=== PATIENT | female | born 1995 | race Caucasian/White ===

== ENCOUNTER 2019-03-11 13:34 | Emergency (ER) | payer MEDICAID, SELFPAY ==
[2019-03-11 13:35] VITALS: BP 158/79; PULSE 107; RESP 16; TEMP 37; O2SAT 98; BMI 34.0
--- NOTE | 2019-03-11 13:48 | US_ITS ---
STUDY: ULTRASOUND GALLBLADDER REASON FOR VISIT: Female, 24 years old. Abdominal pain and bloating TECHNIQUE: Ultrasound evaluation of the gallbladder was performed with real-time and static arthur-scale imaging. TECHNICAL QUALITY: Adequate. COMPARISON: None. FINDINGS: Gallbladder: Incompletely distended distended gallbladder. The gallbladder wall measures 14 mm. There is a positive sonographic Torrez's sign. There is pericholecystic fluid. There are no gallstones. Common Bile Duct (C.B.D.): The common bile duct measures 4 mm. US/Gallbladder IMPRESSION: 1. Gallbladder wall thickening with pericholecystic fluid (could be due to other causes other than biliary). No gallstones or gallbladder distention. Nonspecific finding and can be associated with cholecystitis, hypoalbuminemia, underlying liver disease. 2. Positive sonographic Torrez sign. Electronically Signed: Barry Sharma MD ([place]) at 15:13 EDT , Service support ,
[2019-03-11 14:14] LABS: Bacteria 0 SEEN /hpf (None Seen); Mucous, Urine 0 SEEN /hpf (<or=2+); Red Blood Cells-Urine 0 SEEN /hpf (0-5)
[2019-03-11 14:23] LABS: Color, Urine Amber (Yellow); Glucose, Dipstick Normal (Normal); Ketone-Dipstick 5 mg/dl (Negative); Leukocyte Esterase-Dipstick 25 /ul (Negative); Nitrite-Dipstick Positive (Negative); Occult Blood-Urine 10 /ul (Negative); Protein-Dipstick 30 mg/dl (Negative); Specific Gravity, Urine 1.015 (1.002-1.030); Urine Clarity Sl. Cloudy (Clear); Urine Urobilinogen 8 mg/dl (Normal); Urine pH 6.5 (5.0 - 8.0)
[2019-03-11] MEDS: 0.9% Normal Saline 1,000 ML 125 ML IV (14:24)
[2019-03-11] MEDS: Morphine 4 MG/ML Syringe IV (14:24)
[2019-03-11] MEDS: Ondansetron 4 MG/2 ML Vial IV (14:24)
[2019-03-11 14:30] LABS: Absolute Lymphocyte Count 3.26 X10^3/uL (0.83-4.51); Absolute Neutrophil Count 3.5 X10^3/uL (2.0-7.7); Basophil# 0.03 X10^3/uL; Basophil% 0.4 % (0-1); Eosinophil# 0.03 X10^3/uL; Eosinophils% 0.4 % (0-5); Hematocrit 39.3 % (37-47); Hemoglobin 13.6 g/dL (12.0-15.0); Lymphocyte # 3.26 X10^3/ul (4.0); Lymphocyte % 44.2 % (19-41); Mean Corp Hgb Conc 34.6 g/dL (32-36); Mean Corpuscular Hgb 30.7 pg (27.0-32.0); Mean Corpuscular Volume 88.7 fL (81-99); Mean Platelet Vol. 10.6 fl (6.2-12.0); Monocyte# 0.52 X10^3/uL; NRBC Flagged by Analyzer 0 % (0-5); Neutrophil # 3.51 X10^3/uL (2.7-7.7); Neutrophil % 47.6 % (47-70); POSITIVE MORPHOLOGY YES; Platelet Count 238 K/mm3 (150-450); RBC Distribution Width SD 45.6 fl (35.1-43.9); Red Blood Count 4.43 M/mm3 (4.2-5.4); White Blood Count 7.4 K/mm3 (4.4-11.0)
[2019-03-11 14:31] LABS: Urine Bilirubin Dipstick 6 mg/dL (Negative)
[2019-03-11 14:32] LABS: Squamous Epithelial Cells - UA 0-5 SEEN /hpf (5-10); White Blood Cells 0-5 SEEN /hpf (0-5)
[2019-03-11 14:34] LABS: Differential Indicated SCAN CRITERIA MET
[2019-03-11 14:42] LABS: Internal QC Validated? YES +Cl - CLEAR BKGD; Pregnancy, Serum, hCG Quali. NEGATIVE Negative
[2019-03-11 15:18] LABS: ALB/GLOB Ratio 0.6 RATIO (0.9-2.4); AST(SGOT) 1873 U/L (15-37); Alanine Aminotransfer ALT/SGPT 2450 U/L (13-56); Albumin, Serum 2.7 g/dL (3.2-5.0); Alkaline Phosphatase 188 U/L (45-117); Anion Gap 5 (5-15); BUN 7 mg/dL (7-18); Calcium,Total 7.7 mg/dL (8.5-10.1); Chloride 100 mmol/L (98-107); EST Glomerular Filtration Rate 108 mL/min (>60); Est Glom Filt Rate - Afr Amer 130 mL/min (>60); Globulin 4.4 g/dL (2.2-4.2); Glucose 99 mg/dL (74-106); Lipase 179 U/L (73-393); Potassium 4.1 mmol/L (3.5-5.1); Protein, Total 7.1 g/dL (6.4-8.2); Sodium Level 134 mmol/L (136-145)
[2019-03-11 15:34] VITALS: BP 122/79; PULSE 81; RESP 16; O2SAT 100
[2019-03-11 15:52] LABS: Differential Comment SCANNED
[2019-03-11 17:00] VITALS: BP 121/84; PULSE 79; RESP 16; O2SAT 99
--- NOTE | 2019-03-11 17:27 | ED.VISSUMM ---
- ER Visit Summary Date of Service: 03/11/19 Chief Complaint: [Abdominal pain] History of Present Illness: The patient is a 24 F [presents to the emergency room with abdominal pain for the last for 5 days. Patient states that she has pain in the upper abdomen that she rates about a 6 out of 10. She has had nausea and dry heaves. Patient has had some loose stool today. She describes a lot of bloating. She had decreased p.o. intake. Food seems to make the pain worse. She has history of hypothyroidism and prior choledocholithiasis but states that she never required any type of surgery or intervention and she passed a gallstone on her own. She states she has had fever at home up to 102 yesterday. Patient had chills.] Physical Examination: [HEENT-PERRLA, EOMI. Cranial nerves II through XII grossly intact. TMs clear. Mucous membranes moist. No adenopathy. Cardiovascular-regular rate and rhythm without murmur or ectopy Lungs-clear to auscultation, chest wall stable without crepitus or subcu emphysema Abdomen-normoactive bowel sounds, soft. Patient has tenderness to the epigastric region and right upper quadrant with some guarding. There is no rebound, rigidity, or perineal signs. Extremities-intact ?4, normal range of motion, normal pulses, atraumatic] Test Results: [CBC with differential 7.4, hemoglobin 13.6, hematocrit 39, placed 238. Chemistries unremarkable. LFTs showed an elevated bilirubin at 6.5, alk phos was 188, ALT 2450, AST 1873, and lipase 179. Urinalysis was normal. hCG was negative. Ultrasound of the right upper quadrant obtained showed gallbladder wall thickening with pericholecystic fluid which may be due to other causes other than biliary. Patient has no gallstones or gallbladder distention. Patient had positive sonographic Torrez sign. Findings can be associated with cholecystitis, hypoalbuminemia, and underlying liver disease.] Emergency Department Course and Treatment: [Case was discussed with general surgeon on-call Dr. Yovanny Samayoa who asked that we transfer patient to tertiary care center. We discussed case with [facility] and del Morgan at the transfer of patient.] Treatment Plan: [Transfer to [facility]] Disposition: [Transfer] Impression: [Abdominal pain Elevated liver enzymes Hyperbilirubinemia] This note was generated with [employer] dictation software. It may contain incorrect words, spelling, and punctuation that were not noted in review of the chart prior to signing ED Disposition - Plan for ED Patient: Referrals: Care Physician,No Primary [Primary Care Provider] -
[2019-03-11 18:57] VITALS: BP 116/81; PULSE 76; RESP 16; O2SAT 100
== END 2019-03-11 18:58 | disposition short-term general hospital (02) ==
LOC: ED 14:13
PROVIDERS: Emergency Provider Emergency Medicine
DX: R10.13 Epigastric pain (principal); R10.11 Right upper quadrant pain; R94.5 Abnormal results of liver function studies; E80.6 Other disorders of bilirubin metabolism; F11.90 Opioid use, unspecified, uncomplicated; Z87.19 Personal history of other diseases of the digestive system; Z72.0 Tobacco use
CPT/HCPCS: 76705; 80053; 81001; 83690; 84703; 85025; 86704; 86705; 86706; 86708; 86709; 86803; 87340; 96361; 96374; 96375; 99285; J7030; A4216; J2405

== ENCOUNTER 2020-03-12 12:17 | Observation (INO) | payer SELFPAY ==
[2020-03-12] VITALS (7 sets, daily range): BP systolic 130–168; BP diastolic 82–118; PULSE 78–120; RESP 16–20; TEMP 36.6–36.9; O2SAT 96–100; BMI 36.2; BMI 35.9
--- NOTE | 2020-03-12 12:30 | RAD_ITS ---
STUDY: X-RAY - ABDOMEN/PELVIS REASON FOR EXAM: Female, 25 years old. PT IS AN INMATE. SWALLOWED METH X 2 DAYS AGO, SENT BY [facility] NURSE TECHNIQUE: Single AP view of the abdomen / pelvis. COMPARISON: None. FINDINGS: Normal visualized lung bases. There is an unremarkable bowel gas pattern. There is no demonstrated free abdominal air. The visualized liver, spleen and kidneys are grossly normal in size and morphology. Normal soft tissue structures. Normal visualized osseous structures. RAD/Abdomen Single View IMPRESSION: Normal x-ray examination of the abdomen and pelvis. Electronically Signed: Santosh Arriaga, at 13:29 EDT , Service support ,
[2020-03-12 12:49] LABS: Absolute Lymphocyte Count 2.54 X10^3/uL (0.83-4.51); Basophil# 0.02 X10^3/uL; Basophil% 0.2 % (0-1); Eosinophil# 0.05 X10^3/uL; Eosinophils% 0.5 % (0-5); Hematocrit 42.6 % (37-47); Hemoglobin 14.4 g/dL (12.0-15.0); Lymphocyte # 2.54 X10^3/ul (4.0); Lymphocyte % 27.1 % (19-41); Mean Corp Hgb Conc 33.8 g/dL (32-36); Mean Corpuscular Hgb 30.5 pg (27.0-32.0); Mean Corpuscular Volume 90.3 fL (81-99); Mean Platelet Vol. 8.9 fl (6.2-12.0); Monocyte% 7.5 % (0-10); NRBC Flagged by Analyzer 0 % (0-5); Neutrophil # 6.04 X10^3/uL (2.7-7.7); Neutrophil % 64.5 % (47-70); Platelet Count 331 K/mm3 (150-450); RBC Distribution Width CV 11.9 % (11.6-14.6); RBC Distribution Width SD 39.7 fl (35.1-43.9); Red Blood Count 4.72 M/mm3 (4.2-5.4); White Blood Count 9.4 K/mm3 (4.4-11.0)
[2020-03-12 13:02] LABS: Anion Gap 5 (5-15); BUN 12 mg/dL (7-18); BUN/Creat Ratio 17.3 RATIO (10-20); Calcium,Total 9.1 mg/dL (8.5-10.1); Chloride 106 mmol/L (98-107); Creatinine, Serum 0.69 mg/dL (0.55-1.02); EST Glomerular Filtration Rate 108 mL/min (>60); Est Glom Filt Rate - Afr Amer 131 mL/min (>60); Estimated Creatinine Clearance 96.86 ml/min; Glucose 105 mg/dL (74-106); Potassium 3.8 mmol/L (3.5-5.1); Sodium Level 136 mmol/L (136-145)
[2020-03-12] MEDS: Ondansetron 4 MG/2 ML Vial IV (13:04)
[2020-03-12] MEDS: LORazepam 2 MG/ML Syringe 1 MG IV ×2 (13:04→14:46)
[2020-03-12 13:08] LABS: Internal QC Validated? YES +Cl - CLEAR BKGD; Pregnancy, Urine Negative Negative
[2020-03-12 13:20] LABS: Amphetamine Urine VISTA POSITIVE (<1000 ng/mL); Barbiturate Urine VISTA NEGATIVE (< 200 ng/mL); Benzodiazepine Urine VISTA NEGATIVE (< 200 ng/mL); Cocaine Urine VISTA NEGATIVE (< 300 ng/mL); Ecstacy Urine VISTA NEGATIVE (< 500 ng/mL); Methadone Urine VISTA NEGATIVE (< 300 ng/mL); PCP Urine VISTA NEGATIVE (< 25 ng/mL); THC Urine VISTA POSITIVE (< 50 ng/mL); Vista UDS pH Range 6
--- NOTE | 2020-03-12 13:54 | ED.VISSUMM ---
- ER Visit Summary Date of Service: 03/12/20 Chief Complaint: [Ingestion] History of Present Illness: The patient is a 25 F [presents to the emergency department after swallowing a bunch of meth 3 days ago. Patient presents from skilled nursing with police escort. Patient is complaining of feeling very paranoid and shaky. She is been having crampy abdominal pain. Patient apparently has been collecting the stool in it is unclear if she ever passed the bag of meth. Patient has had some nausea and some diarrhea related to being dope sick. Patient does admit to using meth as well as heroin. Patient is a smoker. Patient drinks alcohol occasionally.] Physical Examination: [HEENT-PERRLA, EOMI. Cranial nerves II through XII grossly intact. TMs clear. Mucous membranes moist. No adenopathy. Cardiovascular-regular rate and rhythm without murmur or ectopy Lungs-clear to auscultation, chest wall stable without crepitus or subcu emphysema Abdomen-normoactive bowel sounds, soft. Patient has some mild tenderness diffusely. There is no rebound, rigidity, or peritoneal signs. Extremities-intact ?4, normal range of motion, normal pulses, atraumatic] Test Results: [CBC with differential obtained showed a white count of 9.4, hemoglobin 14, hematocrit 43, placed 331. Chemistries unremarkable. hCG was negative. Toxicology screen was positive for amphetamines and marijuana. A KUB was performed which essentially showed nothing acute.] Emergency Department Course and Treatment: [IV line established on arrival. Patient was given Ativan 1 mg IV. Patient continued feels shaky and anxious and was given a second dose of Ativan 1 mg IV.] Treatment Plan: [Admit] Disposition: [Admit] Impression: [Ingestion of methamphetamines Tachycardia Illicit drug use ] This note was generated with [employer] dictation software. It may contain incorrect words, spelling, and punctuation that were not noted in review of the chart prior to signing ED Disposition - Plan for ED Patient: Referrals: Care Physician,No Primary [Primary Care Provider] -
--- NOTE | 2020-03-12 14:11 | NURSING ---
DR CATALINO CALDERON
--- NOTE | 2020-03-12 14:17 | HP.PCM_ITS ---
Problem List (1) Amphetamine abuse Status: Acute (2) Elevated blood pressure reading Status: Acute (3) Tachycardia Status: Acute (4) Obesity (BMI 35.0-39.9 without comorbidity) Status: Acute History of Present Illness Date of Admission: 03/12/20 The patient is a 25 year old F with a past medical history of polysubstance abuse. She presented to the ED with a police escort after having paranoia, tremor, anxiety and crampy abdominal pain today. She apparently swallowed a bunch of meth in packaging about 3 days ago when being pulled over by the [employer]. It is unclear if she has passed the swallowed bags at this time and with her sx there is concern that the bags are leaking. Her tox screen is + for amphetamines and THC on admission. Her test is negative. All other lab is WNL. She is tachycardic (sinus tach) with HR in the 100-120 range at rest and she is hypertensive with a BP in the ED of 160/118. She has no changes in her EKG. Past Medical History Allergies No Known Allergies Allergy (Verified 03/12/20 12:41) Home Medications: Ambulatory Orders Medication Instructions Recorded NK 03/11/19 Surgical History: cholecystectomy Psychiatric History: Anxiety SCISSORS SHARPENER History: No pertinent SCISSORS SHARPENER history Lives: - - here from skilled nursing Smoking Status: Current every day smoker Tobacco Use: Cigarettes - 1/2 PPD Alcohol: Occasional Drugs: Heroin, Marijuana, - - meth Review of Systems Constitutional: Reports: Chills, Fatigue. Denies: Anorexia, Fever, Night Sweats, Malaise, Weakness, Weight Change Eyes: Denies: Blurred vision, Cataracts, Conjunctivae Inflammation, Double vision, Drainage, Eyelid Inflammation, Pain, Redness, Vision Change HEENT: Denies: Difficulty Hearing, Difficulty Swallowing, Dysphasia, Ear Pain, Eye Pain, Hard of Hearing, Head Aches, Hearing Changes, Nasal bleeding, Nasal Congestion, Post Nasal Drip, Sinus Congestion, Sinus Drainage, Sore Throat, Visual Changes Cardiovascular: Denies: Chest Pain, Claudication, Chest Pressure, Chest Tightness, Edema, Heaviness, Light Headedness, Orthopnea, Palpitations, Paroxysmal Noc. Dyspnea, Syncope Respiratory: Denies: Cough, Hemoptysis, Pleuritic Pain, Shortness of Breath, Shortness of breath at rest, Shortness of breath upon exertion, Sputum production, Wheezing Gastrointestinal: Reports: Diarrhea, Nausea. Denies: Abdominal Pain, Constipation, Dyspepsia, Hematemesis, Hematochezia, Melena, Vomiting Genitourinary: Denies: Dysuria, Frequency, Hematuria, Hesitancy, Incontinence, Nocturia, Retention, Urgency Gynecological: Denies: Breast symptoms, Excessively long or heavy periods, Vaginal bleeding Musculoskeletal: Reports: Muscle pain. Denies: Back Pain, Joint stiffness, Joint swelling, Joint Tenderness, Neck Pain Skin: Denies: Dryness, Jaundice, Lesions, Pruritis, Rash, Skin Changes Neurological: Reports: Tremor. Denies: Balance problems, Blurred vision, Double vision, Change in Speech, Slurred speech, Confusion, Difficulty swallowing, Focal weakness, Headaches, Incoordination, Numbness, Tingling, Seizures Psychiatric: Reports: Anxiety, - - paranoia. Denies: Depression Endocrine: Denies: Change in Body Habitus, Heat/ Cold Intolerance, Polydipsia, Polyuria Hematologic/ Lymphatic: Denies: Adenopathy, Anemia, Easy Bruising, Easy Bleeding, Petechiae, Purpura VTE Information - Inpt Only VTE Present on Admission: No VTE Mechan Device Prophylaxis: None - low risk VTE Pharm Prophylaxis ordered?: No Patient Problems: Active and Suspected Problems Amphetamine abuse (Acute) Elevated blood pressure reading (Acute) Tachycardia (Acute) Obesity (BMI 35.0-39.9 without comorbidity) (Acute) - Physical Exam Vitals/I&O's: Vital Signs Temp Pulse Resp BP 98.3 F 115 H 18 160/118 H 03/12/20 12:18 03/12/20 12:18 03/12/20 12:18 03/12/20 12:18 Oxygen Delivery Method Room Air Weight: 89.9 kg Body Mass Index (BMI) 36.2 General: Alert, Oriented x3, Cooperative, No apparent distress, Well developed, Well nourished, - - young WF who appears older than stated age HEENT: Atraumatic, PERRLA, EOMI, Normocephalic, EAC Clear Oral: Moist Mucosa, No Gingival or Mucosal Lesions/ Ulcerations, - - fair dent ition Neck: Supple, No JVD, Negative Carotid Bruits, No Nodes, Trachea Midline Lungs: Clear to auscultation, Normal air movement, No rhonchi, No wheeze, No rales Cardiovascular: Regular Rhythm, Normal S1, Normal S2, No murmurs, No Ectopic Activity, No rub noted, No Gallop, Tachycardic Abdomen: Bowel Sounds Present, Soft, Non Tender, Non-Distended, Obese, No hernias noted Extremities: No clubbing, No cyanosis, No edema, Capillary Refill Less than 3 Seconds, Peripheral Pulses Normal Skin: No rashes, No breakdown, - - multiple track sibley Musculoskeletal: No Tenderness to Palpation of Joints or Extremities, No Muscle Wasting Lymphatic: No Cervical, Supraclavicular, or Inguinal Adenopathy Neurological: Cranial nerves II-XII grossly intact, Neuro grossly intact, Muscle tone normal, Coordination normal Psych/Mental Status: Anxious, Impulsive, Manic, - - pressured speech but A&O x 4 Laboratory Results 03/12/20 12:40: WBC 9.4, RBC 4.72, Hgb 14.4, Hct 42.6, MCV 90.3, MCH 30.5, MCHC 33.8, RDW Std Deviation 39.7, RDW Coeff of Arielle 11.9, Plt Count 331, MPV 8.9, Immature Gran % (Auto) 0.200, Neut % (Auto) 64.5, Lymph % (Auto) 27.1, [place] % (Auto) 7.5, Eos % (Auto) 0.5, Baso % (Auto) 0.2, Absolute Neuts (auto) 6.0, Absolute Lymphs (auto) 2.54, Nucleated RBC % 0 03/12/20 12:40: Sodium 136, Potassium 3.8, Chloride 106, Carbon Dioxide 25.0, Anion Gap 5, BUN 12, Creatinine 0.69, Estim Creat Clear Calc 96.86, Est GFR (MDRD) Af Amer 131, Est GFR (MDRD) Non-Af 108, BUN/Creatinine Ratio 17.3, Gluc ose 105, Calcium 9.1 03/12/20 13:00: Urine Test Negative 03/12/20 13:00: Urine Opiates Screen NEGATIVE, Urine Methadone Screen NEGATIVE, Ur Barbiturates Screen NEGATIVE, Ur Phencyclidine Scrn NEGATIVE, Ur Amphetamines Screen POSITIVE H, U Methamphetamin-MDMA NEGATIVE, U Benzodiazepines Scrn NEGATIVE, Urine Cocaine Screen NEGATIVE, U Cannabinoids Screen POSITIVE H, Ur Drug Screen Comment Assessment/Plan All Active Problems Amphetamine abuse (Acute) Elevated blood pressure reading (Acute) Tachycardia (Acute) Obesity (BMI 35.0-39.9 without comorbidity) (Acute) Acute Meth Toxicity/OD -admit to tele -check EKG -am lab -addiction order set Tachycardia/HTN -suspect related to withdrawal/toxicity -labetalol prn -addiction order set -EKG in am -tsh Polysubstance Abuse -Meth/THC/Heroin -IVDU regularly -check HIV status and Hep C status -recommend f/u with 180 once released from skilled nursing Hypothyroidism -in history but not on any meds -check TSH Cholecystitis -s/p cholecystectomy -done at [facility] -03/2019 Tobacco Abuse -recommend cessation -start patch Obesity -recommend wgt loss -BMI 36 DVT prophylaxis -low risk -early mobility Code status -Full Inpatient E&M: 70655 Subs Hosp L3
--- NOTE | 2020-03-12 14:24 | NURSING ---
PCU METHAMPHETAMINE INGESITON CATALINO
[2020-03-12] MEDS: Lactated Ringers 1,000 ML 100 ML IV (16:39)
[2020-03-12] MEDS: Polyethylene Glycol 3350 17 GM PACKET PO (16:39)
[2020-03-12] MEDS: hydrOXYzine PAM 25 MG Capsule 50 MG PO (18:02)
[2020-03-12] MEDS: cloNIDine HCl 0.1 MG Tablet PO (18:02)
[2020-03-12] MEDS: Phenobarbital 32.4 MG Tablet 97.2 MG PO (20:42)
[2020-03-12] MEDS: Folic Acid 1 MG Tablet PO (20:43)
[2020-03-12] MEDS: Acetaminophen 325 MG Tablet 650 MG PO (20:43)
[2020-03-12] MEDS: Multivitamins,Therapeutic Tablet 1 TABLET PO (20:43)
[2020-03-12] MEDS: Gabapentin 300 MG Capsule PO (20:43)
[2020-03-12] MEDS: Thiamine Hydrochloride 100 MG Tablet PO (20:48)
[2020-03-12 21:01] LABS: Magnesium 2.3 mg/dL (1.6-2.6); Phosphorus 2.9 mg/dL (2.5-4.9)
[2020-03-13] MEDS: traZODone 100 MG Tablet PO (00:23)
[2020-03-13] MEDS: Phenobarbital 32.4 MG Tablet 97.2 MG PO ×4 (00:23→13:14)
[2020-03-13 00:46] VITALS: PULSE 94; RESP 16; TEMP 36.8; O2SAT 100
[2020-03-13] MEDS: Acetaminophen 325 MG Tablet 650 MG PO ×2 (04:26→13:14)
[2020-03-13 04:33] VITALS: BP 119/89; PULSE 88; RESP 16; TEMP 36.4; O2SAT 100
--- NOTE | 2020-03-13 05:55 | EKG12_ITS ---
Test Reason : AM EKG Blood Pressure : / mmHG Vent. Rate : 087 BPM Atrial Rate : 087 BPM P-R Int : 146 ms QRS Dur : 094 ms QT Int : 392 ms P-R-T Axes : 030 062 052 degrees QTc Int : 471 ms Normal sinus rhythm Normal ECG No previous ECGs available Confirmed by DARLINE KING ([id number]), photographic editor BEN MOORE ([id number]) on 03/15/2020 10:38:07 AM Referred By: CATALINO Confirmed By:DARLINE KING
[2020-03-13 06:25] LABS: Absolute Lymphocyte Count 3.24 X10^3/uL (0.83-4.51); Absolute Neutrophil Count 3.9 X10^3/uL (2.0-7.7); Basophil# 0.03 X10^3/uL; Basophil% 0.4 % (0-1); Eosinophil# 0.05 X10^3/uL; Eosinophils% 0.6 % (0-5); Hematocrit 43.2 % (37-47); Hemoglobin 14.4 g/dL (12.0-15.0); Lymphocyte # 3.24 X10^3/ul (4.0); Lymphocyte % 41.2 % (19-41); Mean Corp Hgb Conc 33.3 g/dL (32-36); Mean Corpuscular Hgb 30.8 pg (27.0-32.0); Mean Corpuscular Volume 92.5 fL (81-99); Mean Platelet Vol. 8.8 fl (6.2-12.0); Monocyte# 0.66 X10^3/uL; Monocyte% 8.4 % (0-10); NRBC Flagged by Analyzer 0 % (0-5); Neutrophil # 3.86 X10^3/uL (2.7-7.7); Platelet Count 303 K/mm3 (150-450); RBC Distribution Width CV 12.2 % (11.6-14.6); RBC Distribution Width SD 41.1 fl (35.1-43.9); Red Blood Count 4.67 M/mm3 (4.2-5.4); White Blood Count 7.9 K/mm3 (4.4-11.0)
[2020-03-13 07:05] LABS: ALB/GLOB Ratio 0.8 RATIO (0.9-2.4); AST(SGOT) 26 U/L (15-37); Alanine Aminotransfer ALT/SGPT 54 U/L (13-56); Albumin, Serum 3.8 g/dL (3.2-5.0); Alkaline Phosphatase 71 U/L (45-117); Anion Gap 1 (5-15); BUN 14 mg/dL (7-18); BUN/Creat Ratio 17.2 RATIO (10-20); Calcium,Total 8.4 mg/dL (8.5-10.1); Chloride 108 mmol/L (98-107); Creatinine, Serum 0.81 mg/dL (0.55-1.02); EST Glomerular Filtration Rate 90 mL/min (>60); Est Glom Filt Rate - Afr Amer 108 mL/min (>60); Estimated Creatinine Clearance 82.51 ml/min; Globulin 4.8 g/dL (2.2-4.2); Glucose 108 mg/dL (74-106); Magnesium 2.3 mg/dL (1.6-2.6); Phosphorus 3.7 mg/dL (2.5-4.9); Potassium 3.9 mmol/L (3.5-5.1); Protein, Total 8.6 g/dL (6.4-8.2); Sodium Level 137 mmol/L (136-145)
[2020-03-13] MEDS: Thiamine Hydrochloride 100 MG Tablet PO (08:48)
[2020-03-13] MEDS: Folic Acid 1 MG Tablet PO (08:48)
[2020-03-13] MEDS: Multivitamins,Therapeutic Tablet 1 TABLET PO (08:48)
[2020-03-13] MEDS: Ondansetron 8 MG Tablet PO (08:48)
[2020-03-13 09:00] VITALS: BP 139/89; PULSE 101; RESP 16; TEMP 37; O2SAT 100
[2020-03-13 10:54] LABS: HIV - WCH Nonreactive (Nonreactive)
[2020-03-13 10:56] LABS: Hepatitis C Antibody Preliminary Reactive (Nonreactive)
[2020-03-13] MEDS: cloNIDine HCl 0.1 MG Tablet PO (13:14)
[2020-03-13] MEDS: hydrOXYzine PAM 25 MG Capsule 50 MG PO (13:14)
[2020-03-13 14:27] VITALS: BP 122/81; PULSE 88; RESP 16; TEMP 37.3; O2SAT 98
--- NOTE | 2020-03-13 16:08 | DCINST_ITS ---
- Discharge Diagnoses Current Active Problems: Current Active and Chronic Problems Amphetamine abuse (Acute) Elevated blood pressure reading (Acute) Tachycardia (Acute) Obesity (BMI 35.0-39.9 without comorbidity) (Acute) You will use the following diet at home:: No restrictions Your food should be the consistency of: Regular Your liquids should be the consistency of: Regular/Thin Discharge Activity: Return to Normal Activity, No Restrictions Pending Tests on Discharge: pt needs a f/u TSH in 6 weeks Allergies/Adverse Reactions: Allergies Penicillins Adverse Reaction (Verified 03/12/20 17:58) Anaphylaxis Medications to take at Discharge ALPRAZolam [Xanax] 4 mg PO DAILY 03/12/20 Clonidine HCl [Catapres] 0.1 mg PO Q8H PRN PRN #9 tablet 03/13/20 Levothyroxine Sodium [Synthroid] 50 mcg PO DAILY #30 tablet 03/13/20 hydrOXYzine pamoate capsule [Vistaril pamoate capsule] 50 mg PO Q6H PRN PRN #12 capsule 03/13/20 The following prescriptions were given: Clonidine HCl [Catapres] 0.1 mg PO Q8H PRN PRN #9 tablet PRN Reason: Restlessness Levothyroxine Sodium [Synthroid] 50 mcg PO DAILY #30 tablet hydrOXYzine pamoate capsule [Vistaril pamoate capsule] 50 mg PO Q6H PRN PRN #12 capsule PRN Reason: mild anxiety Primary Care Physician: Care Physician,No Primary [Primary Care Provider] - Test Results: Test results from this visit will be discussed in further detail at your follow- up appointment, if applicable.
--- NOTE | 2020-03-13 16:12 | DS.PCM_ITS ---
Discharge Date and Diagnosis - Problem List Patient Problems: Active and Suspected Problems Amphetamine abuse (Acute) Elevated blood pressure reading (Acute) Tachycardia (Acute) Obesity (BMI 35.0-39.9 without comorbidity) (Acute) Date of Admission: 03/12/20 Date of Discharge: 03/13/20 - Primary Discharge Diagnosis Acute Problems: Active Problems Amphetamine abuse (Acute) Elevated blood pressure reading (Acute) Tachycardia (Acute) Obesity (BMI 35.0-39.9 without comorbidity) (Acute) Hospital Course and Treatment Operations: None Procedures: None Summary of Care Provided: Ms Howell is a 25 year old F with a past medical history of polysubstance abuse. She presented to the ED on 03/12 with a police escort after having paranoia, tremor, anxiety and crampy abdominal pain. She apparently swallowed a bunch of meth in packaging about 3 days prior to admission when being pulled over by the police. It is unclear if she has passed the swallowed bags at this time and with her sx there is concern that the bags are leaking. Her tox screen is + for amphetamines and THC on admission. Her test is negative. All other lab is WNL. She is tachycardic (sinus tach) with HR in the 100-120 range at rest and she is hypertensive with a BP in the ED of 160/118. She has no changes in her EKG. SHe was treated with supportive care and her BP and HR normalized. She was found to have Hep C antibody and encouraged to f/u with a PCP after she was released from halfway and have a viral load done to assess for viral clearance. She was also found to have a TSH of 20. She is to be on synthroid at baseline but has not been compliant. She had been on 50 mcg and this was restarted and a script was written. She will need a repeat TSH in 6 weeks. She was also written scripts for Hydroxyzine and clonidine prn to help with any further withdrawal sx over the next 3 days. She was release with an officer back to halfway. Patient Problems: Active and Suspected Problems Amphetamine abuse (Acute) Elevated blood pressure reading (Acute) Tachycardia (Acute) Obesity (BMI 35.0-39.9 without comorbidity) (Acute) - Physical Exam Vitals/I&O's: Vital Signs Temp Pulse Resp BP Pulse Ox 99.1 F 88 16 122/81 H 98 03/13/20 14:27 03/13/20 14:27 03/13/20 14:27 03/13/20 14:27 03/13/20 14:27 Oxygen Delivery Method Room Air Weight: 89.04 kg Body Mass Index (BMI) 36.2 Intake and Output for Last 24 Hours 03/11/20 03/12/20 03/13/20 23:59 23:59 23:59 Intake Total 803.33 / 803.33 3250 / 3250 Output Total 900 / 900 Balance 803.33 / 803.33 2350 / 2350 General: Alert, Oriented x3, Cooperative, No apparent distress, Well developed, Well nourished, - - young WF appears older than stated age, sitting up eating and officer at bedside Lungs: Clear to auscultation, Normal air movement, No rhonchi, No wheeze, No rales Cardiovascular: Regular rate, Regular Rhythm, Normal S1, Normal S2, No murmurs, No Ectopic Activity, No rub noted, No Gallop Abdomen: Bowel Sounds Present, Soft, Non Tender, Non-Distended, No Hepato- splenomegaly, Obese Extremities: No clubbing, No cyanosis, No edema, Capillary Refill Less than 3 Seconds Skin: No rashes, No breakdown Neurological: Cranial nerves II-XII grossly intact, Neuro grossly intact Psych/Mental Status: Normal Affect, Appropriate, Alert and oriented to time, place, person, mood and affect Laboratory Results 03/12/20 12:40: Phosphorus 2.9, Magnesium 2.3 03/13/20 06:12: WBC 7.9, RBC 4.67, Hgb 14.4, Hct 43.2, MCV 92.5, MCH 30.8, MCHC 33.3, RDW Std Deviation 41.1, RDW Coeff of Arielle 12.2, Plt Count 303, MPV 8.8, Immature Gran % (Auto) 0.400, Neut % (Auto) 49.0, Lymph % (Auto) 41.2 H, [place] % (Auto) 8.4, Eos % (Auto) 0.6, Baso % (Auto) 0.4, Absolute Neuts (auto) 3.9, Absolute Lymphs (auto) 3.24, Nucleated RBC % 0 03/13/20 06:12: Sodium 137, Potassium 3.9, Chloride 108 H, Carbon Dioxide 28.0, Anion Gap 1 L, BUN 14, Creatinine 0.81, Estim Creat Clear Calc 82.51, Est GFR (MDRD) Af Amer 108, Est GFR (MDRD) Non-Af 90, BUN/Creatinine Ratio 17.2, Glucose 108 H, Calcium 8.4 L, Phosphorus 3.7, Magnesium 2.3, Total Bilirubin 0.40, AST 26, ALT 54, Alkaline Phosphatase 71, Total Protein 8.6 H, Albumin 3.8, Globulin 4.8 H, Albumin/Globulin Ratio 0.8 L, TSH 20.70 H 03/13/20 06:12: Hepatitis C Antibody Preliminary Reactive, HIV 1&2 Antibody Nonreactive Current Medications Acetaminophen (Tylenol) 650 mg PO Q6H PRN PRN PRN Reason: Pain Score 1-10/Temp > 100.7 F Last Admin: 03/13/20 13:14 Dose: 650 mg Documented by: Clonidine (Catapres) 0.1 mg PO Q8H PRN PRN PRN Reason: RESTLESSNESS Last Admin: 03/13/20 13:14 Dose: 0.1 mg Documented by: Dicyclomine HCl (Bentyl) 20 mg PO Q6H PRN PRN PRN Reason: Abdominal Discomfort Folic Acid (Folic Acid) 1 mg PO DAILY@0800 YAEL Last Admin: 03/13/20 08:48 Dose: 1 mg Documented by: Gabapentin (Neurontin) 300 mg PO Q8H PRN PRN PRN Reason: moderate to severe anxiety Last Admin: 03/12/20 20:43 Dose: 300 mg Documented by: Hydroxyzine Pamoate (Vistaril Pamoate Capsule) 50 mg PO Q6H PRN PRN PRN Reason: mild anxiety Last Admin: 03/13/20 13:14 Dose: 50 mg Documented by: Labetalol HCl (Trandate) 20 mg IV Q4H PRN PRN PRN Reason: Sbp Greater Than 160 Loperamide HCl (Imodium) 2 mg PO Q4H PRN PRN PRN Reason: LOOSE STOOLS Melatonin (Melatonin) 3 mg PO QHS PRN PRN PRN Reason: INSOMNIA Methocarbamol (Methocarbamol) 1,500 mg PO Q6H PRN PRN PRN Reason: MUSCLE SPASM Multivitamins (Multivitamin) [facility] Last Admin: 03/13/20 08:48 Dose: 1 tablet Documented by: Nicotine (Nicoderm Cq (Pbkc)) 14 mg TRANSDERM. DAILY [facility] Last Admin: 03/13/20 08:49 Dose: 14 mg Documented by: Ondansetron HCl (Zofran) 4 mg IV Q8H PRN PRN PRN Reason: NAUSEA/VOMITING Ondansetron HCl (Zofran) 8 mg PO Q8H PRN PRN PRN Reason: NAUSEA Last Admin: 03/13/20 08:48 Dose: 8 mg Documented by: Phenobarbital (Phenobarbital) 97.2 mg PO Q4H [facility]; Taper Stop: 03/17/20 04:59 Last Admin: 03/13/20 13:14 Dose: 97.2 mg Documented by: Sodium Chloride () 10 - 40 ml IV UD PRN PRN Reason: SALINE FLUSH Thiamine HCl (Vitamin B1) [facility] Last Admin: 03/13/20 08:48 Dose: 100 mg Documented by: Trazodone HCl (Desyrel) 100 mg PO QHS PRN PRN PRN Reason: INSOMNIA Last Admin: 03/13/20 00:23 Dose: 100 mg Documented by: Discharge Activity: Return to Normal Activity, No Restrictions Home Medications: Medications to take at Discharge ALPRAZolam [Xanax] 4 mg PO DAILY 03/12/20 Clonidine HCl [Catapres] 0.1 mg PO Q8H PRN PRN #9 tablet 03/13/20 Levothyroxine Sodium [Synthroid] 50 mcg PO DAILY #30 tablet 03/13/20 hydrOXYzine pamoate capsule [Vistaril pamoate capsule] 50 mg PO Q6H PRN PRN #12 capsule 03/13/20 Following Prescriptions Were Given to Patient: Clonidine HCl [Catapres] 0.1 mg PO Q8H PRN PRN #9 tablet PRN Reason: Restlessness Levothyroxine Sodium [Synthroid] 50 mcg PO DAILY #30 tablet hydrOXYzine pamoate capsule [Vistaril pamoate capsule] 50 mg PO Q6H PRN PRN #12 capsule PRN Reason: mild anxiety Primary Care Physician: Care Physician,No Primary [Primary Care Provider] - Medical Necessity - Tobacco Use Smoking Status: Current every day smoker Tobacco Use: Cigarettes Meaningful Use Info Meaningful Use Diagnoses (Choose all that apply): None applicable Inpatient E&M: 33089 Disch Hosp
== END 2020-03-13 16:11 ==
LOC: ED 13:06 → PCU 14:31
PROVIDERS: Family Medicine; Admitting Provider Internal Medicine; Emergency Provider Emergency Medicine; Visit Provider Internal Medicine
DX: F15.10 Other stimulant abuse, uncomplicated (principal); E66.9 Obesity, unspecified; R19.7 Diarrhea, unspecified; R00.0 Tachycardia, unspecified; F41.9 Anxiety disorder, unspecified; Z79.899 Other long term (current) drug therapy; F17.210 Nicotine dependence, cigarettes, uncomplicated; F11.10 Opioid abuse, uncomplicated; F12.10 Cannabis abuse, uncomplicated; I10 Essential (primary) hypertension; Z68.36 Body mass index [BMI] 36.0-36.9, adult; E03.9 Hypothyroidism, unspecified; Z91.14 Patient's other noncompliance with medication regimen
CPT/HCPCS: 74018; 80048; 80053; 80307; 81025; 83735; 84100; 84443; 85025; 86703; 86803; 93005; 96361; 96374; 96375; 96376; 97802; 99218; 99284; J7120; A4216; G0378; J2405

== ENCOUNTER → 2023-03-04 | Outpatient (CLI) | payer MEDICAID, SELFPAY ==
[2023-03-04 15:18] LABS: Hemoglobin A1c 4.8 % (3.8-5.6)
[2023-03-04 15:59] LABS: AST(SGOT) 19 U/L (15-37); Alanine Aminotransfer ALT/SGPT 28 U/L (13-56); Alkaline Phosphatase 55 U/L (45-117); Anion Gap 7 (5-15); BUN 17 mg/dL (7-18); BUN/Creat Ratio 18.8 RATIO (10-20); Chloride 104 mmol/L (98-107); EST Glomerular Filtration Rate 78 mL/min (>60); Est Glom Filt Rate - Afr Amer 94 mL/min (>60); Glucose 80 mg/dL (74-106); Potassium 4.2 mmol/L (3.5-5.1); Sodium Level 136 mmol/L (136-145); T4 Free Direct 0.88 ng/dL (0.76-1.46); Thyroid Stim Hormone (TSH) 5.11 uIU/mL (0.358-3.74)
== END | disposition home or self-care (01) ==
PROVIDERS: PCP Family Medicine; Referring Provider Family Medicine; Visit Provider Family Medicine
DX: E03.9 Hypothyroidism, unspecified (principal)
CPT/HCPCS: 36415; 80053; 83036; 84439; 84443

== ENCOUNTER → 2023-04-15 | Outpatient (CLI) | payer MEDICAID, SELFPAY | END | disposition home or self-care (01) | PROVIDERS: PCP Family Medicine; Referring Provider Physician Assistant Surgical; Visit Provider Physician Assistant Surgical | DX: R69 Illness, unspecified (principal) | CPT/HCPCS: 87491; 87591 ==

== ENCOUNTER → 2023-05-12 | Outpatient (CLI) | payer MEDICAID, SELFPAY ==
[2023-05-12 11:13] LABS: Bacteria 0 SEEN /hpf (None Seen); Mucous, Urine 0 SEEN /hpf (<or=2+); Red Blood Cells-Urine 0 SEEN /hpf (0-5); Squamous Epithelial Cells - UA 0 SEEN /hpf (5-10); White Blood Cells 0 SEEN /hpf (0-5)
[2023-05-12 12:35] LABS: Color, Urine Straw (Yellow); Glucose, Dipstick Normal (Normal); Ketone-Dipstick Negative (Negative); Leukocyte Esterase-Dipstick Negative /ul (Negative); Nitrite-Dipstick Negative (Negative); Occult Blood-Urine Negative /ul (Negative); Protein-Dipstick Negative (Negative); Specific Gravity, Urine 1.005 (1.002-1.030); Urine Bilirubin Dipstick Negative (Negative); Urine Clarity Clear (Clear); Urine Urobilinogen Normal (Normal)
== END | disposition home or self-care (01) ==
PROVIDERS: PCP Family Medicine; Visit Provider Physician Assistant Surgical
DX: N39.0 Urinary tract infection, site not specified (principal); R10.2 Pelvic and perineal pain
CPT/HCPCS: 81001; 87086; 87088